=== PATIENT | female | born 1980 | race Caucasian/White ===

== ENCOUNTER → 2017-08-19 09:58 | Outpatient (CLI) | payer BC, SELFPAY ==
[2017-08-19 12:50] LABS: Hematocrit 41.8 % (37-47); Hemoglobin 13.9 g/dl (12.0-15.0); Mean Corp Hgb Conc 33.3 g/gl (32-36); Mean Corpuscular Volume 81.2 fL (81-99); Mean Platelet Vol. 10.1 fl (6.2-12.0); Platelet Count 246 K/mm3 (150-450); RBC Distribution Width CV 14.6 % (11.6-14.6); Red Blood Count 5.15 M/mm3 (4.2-5.4); White Blood Count 7.3 K/mm3 (4.4-11.0)
[2017-08-19 12:53] LABS: Scan Indicated on CBC? Y/N NO
[2017-08-19 13:09] LABS: T4 Free Direct 1.09 ng/dL (0.76-1.46); Thyroid Stim Hormone (TSH) 1.39 uIU/mL (0.358-3.74)
== END ==
PROVIDERS: Family Provider Family Medicine; PCP Family Medicine; Visit Provider Obstetrics & Gynecology
DX: N92.5 Other specified irregular menstruation (principal)
CPT/HCPCS: 36415; 84439; 84443; 85027

== ENCOUNTER → 2017-12-23 13:38 | Outpatient (CLI) | payer BC, SELFPAY ==
[2017-12-23 17:43] LABS: Hematocrit 40.4 % (37-47); Hemoglobin 13.1 g/dl (12.0-15.0); Mean Corp Hgb Conc 32.4 g/gl (32-36); Mean Corpuscular Volume 83.1 fL (81-99); Mean Platelet Vol. 9.9 fl (6.2-12.0); Platelet Count 237 K/mm3 (150-450); RBC Distribution Width CV 14.5 % (11.6-14.6); RBC Distribution Width SD 43.9 fl (35.1-43.9); Red Blood Count 4.86 M/mm3 (4.2-5.4)
[2017-12-23 18:00] LABS: Prothrombin Time (Protime)PT. 12.8 SECONDS (11.7-14.9)
[2017-12-23 18:01] LABS: Partial Thromboplast Time 29.9 Seconds (24.1-36.2)
[2017-12-23 18:16] LABS: Scan Indicated on CBC? Y/N NO
== END ==
PROVIDERS: Family Provider Family Medicine; PCP Family Medicine; Visit Provider Family Medicine Geriatric Medicine
DX: Z01.818 Encounter for other preprocedural examination (principal)
CPT/HCPCS: 36415; 85027; 85610; 85730; 86850; 86900

== ENCOUNTER 2017-12-25 05:37 | Day surgery (SDC) | payer BC, SELFPAY ==
[2017-12-25] VITALS (8 sets, daily range): BP systolic 123–149; BP diastolic 60–95; PULSE 112–125; RESP 16–18; TEMP 36.7–37.7; O2SAT 94–100; BMI 38.7
--- NOTE | 2017-12-25 07:22 | PCM.DC.D&C ---
Discharge Diet: No Restrictions Discharge Activity: May Shower, May Take a Tub Bath Return to work on:: 12/26/17 May resume sexual activity in: 1 week Allergies/Adverse Reactions: Allergies No Known Allergies Allergy (Verified 12/25/17 06:45) Medications to take at Discharge Cetirizine HCl [Zyrtec] 10 mg PO DAILY 12/19/13 Oxycodone [Oxyir] 5 - 10 mg PO Q6H PRN PRN 2 Days #10 tablet 12/25/17 The following prescriptions were given: Oxycodone [Oxyir] 5 - 10 mg PO Q6H PRN PRN 2 Days #10 tablet PRN Reason: Mod-Severe Pain (-02/25) Primary Care Physician: Omar Maldonado MD [Primary Care Provider] - Test Results: Test results from this visit will be discussed in further detail at your follow-up appointment, if applicable. Please Follow Up With: Christy Sharif MD - [phone] When: in 2 wk for postop checkup Proposed Discharge Date: 12/25/17
--- NOTE | 2017-12-25 07:25 | DCINST_ITS ---
Discharge Diet: No Restrictions Discharge Activity: May Shower, May Take a Tub Bath Return to work on:: 12/26/17 May resume sexual activity in: 1 week Allergies/Adverse Reactions: Allergies No Known Allergies Allergy (Verified 12/25/17 06:45) Medications to take at Discharge Cetirizine HCl [Zyrtec] 10 mg PO DAILY 12/19/13 Oxycodone [Oxyir] 5 - 10 mg PO Q6H PRN PRN 2 Days #10 tablet 12/25/17 The following prescriptions were given: Oxycodone [Oxyir] 5 - 10 mg PO Q6H PRN PRN 2 Days #10 tablet PRN Reason: Mod-Severe Pain (-02/25) Primary Care Physician: Omar Maldonado MD [Primary Care Provider] - Test Results: Test results from this visit will be discussed in further detail at your follow- up appointment, if applicable. Please Follow Up With: Christy Sharif MD - [phone] When: in 2 wk for postop checkup Proposed Discharge Date: 12/25/17
--- NOTE | 2017-12-25 07:30 | EMB_PTH ---
PATIENT: SHEEBA ALEGRIA LOC: [facility] [place] U#:[id number] AGE/SX: 37/F ROOM: RE12/25/[address]: Dr. Christy Sharif MD : [id number] BED: DIS: 12/25/2017 SPEC #: [id number] RECD: 12/25/17 09:19 STATUS: SHAWN LUCY #: [id number] EMILIO: 12/25/17 07:[address]: Christy Sharif DEPT: SURGICAL PATHOLOGY RECD BY: Casper Ballard ENTERED: 12/25/17 10:19 SP TYPE: ENDOM BX/C MAKI DR: Dr. Omar Maldonado MD Tissues: Endometrium, NOS Procedures: Surgery Specimen Level IV HEADER OPERATION: Hysteroscopy, D & C, Hilary PRE-OP DIAGNOSIS: Menorrhagia TISSUE SUBMITTED: Endometrial curettings MICROSCOPIC DIAGNOSIS Endometrial curettings: Secretory endometrium. SJ:meghan 12/26/17 MICROSCOPIC DESCRIPTION Slides are reviewed. GROSS DESCRIPTION Received in fixative is one container labeled with the patient's name and designated endometrial curettings. The specimen consists of multiple irregular fragments of soto-pink soft tissue mixed with mucoid tissue that in aggregate measure 5 x 3 x 0.3 cm. The entire specimen is submitted in two cassettes. / SJ:rg 12/25/17 TC:4 CPT: 56503
[2017-12-25] MEDS: Lubricating Jelly 60 GM Tube 30 GM TOPICAL (07:40)
[2017-12-25] MEDS: oxyCODONE 5 MG Tablet PO (08:48)
[2017-12-25] MEDS: Scopolamine 1mg/72hr Patch 1 PATCH TD (10:15)
[2017-12-25] MEDS: Ondansetron ODT 4 MG Tablet 8 MG PO (10:16)
--- NOTE | 2017-12-25 13:11 | PCM.OP.BLANK ---
Operative Report Date of Procedure: 12/25/17 PROCEDURE: Hysteroscopy, Dilation and curettage, Hilary endometrial ablation Preoperative Diagnosis: menorrhagia, premenopause Postop diagnosis: menorrhagia, premenopause Anesthesia: MAC IV sedation, Dr Marshal Cook with 10 cc paracervical block of 1% lidocaine with 1:100,000 epinephrine Surgeon: Christy Sharif MD EBL: Minimal for case Drains: Red Childress, clear yellow urine Complications: none Fluids: replacement Findings: nonparous appearing cervix Normal appearing , fluffy endometrium. Tubal ostia visualized bilaterally. Narrative account After the R,B,Alternatives of the procedure were reviewed with the patient , informed consent was obtained. The patient was taken to the operating room with an IV running and placed in dorsal supine position on the operating table. She was given general anesthesia, and repositioned to the dorsal lithotomy position and prepped and draped in the usual sterile fashion. A graves speculum was placed into the vagina and the cervix was brought into view. A paracervical block of 10 cc of lidocaine with 1:100,000 epinephrine was instilled. The cervix was nonparous appearing. A single toothed tenaculum was applied to the posterior lip of the cervix. The cervix was then sequentially dilated to allow admission of the hysteroscope into the endometrial cavity. The hysteroscopy was performed with findings noted as above. Photos were taken showing both tubal ostia and a fluffy appearing endometrium. A sharp curettage was performed and multiple small pieces of tissue were withdrawn and set aside for later pathology review. Upon completion of the D and C, the Hilary endometrial ablation device was placed into the uterus to the fundus, the endometrial canal length was 7 cm. The balloon seal at the cervix was inflated and the CO2 test was passed. The Hilary endometrial ablation cycle was then completed, and the device was withdrawn. Excellent hemostasis was noted. The single toothed tenaculum was removed from the cervix and a RayTec was used to remove any remaining tissue and blood from the upper vagina and cervix. The procedure was terminated. The speculum was removed. The patient was returned to dorsal supine position and awakened from general anesthesia, and transferred to the recovery room bed in stable condition after tolerating the procedure well. Sponge, lap, needle and instrument counts were correct x two. For medications given intraoperatively , please see the anesthesia record.
== END 2017-12-25 10:28 | disposition home or self-care (01) ==
LOC: SDC 05:39 → AC 05:39
PROVIDERS: Family Provider Family Medicine; PCP Family Medicine; Visit Provider Obstetrics & Gynecology
PROC: 0U5B8ZZ Destruction of Endometrium, Via Natural or Artificial Opening Endoscopic (ICD-10-PCS; CPT 58558; principal; 2017-12-25 07:15)
DX: N92.0 Excessive and frequent menstruation with regular cycle (principal); Z85.038 Personal history of other malignant neoplasm of large intestine
CPT/HCPCS: 58558; 88305; J7120

== ENCOUNTER → 2020-01-11 | Outpatient (CLI) | payer BC, SELFPAY ==
[2017-12-25 06:47] VITALS: BMI 38.7
[2020-01-13 20:07] LABS: Banana <0.10 kU/L (Class 0); Celery <0.10 kU/L (Class 0); Cheddar Cheese <0.10 kU/L (Class 0); Lettuce <0.10 kU/L (Class 0); Peach <0.10 kU/L (Class 0)
[2020-01-14 02:23] LABS: Lactalbumin, Alpha <0.10 kU/L (Class 0); Turkey <0.10 kU/L (Class 0)
[2020-01-14 03:07] LABS: Almond <0.10 kU/L (Class 0); Alternaria tenuis <0.10 kU/L (Class 0); Ash, White <0.10 kU/L (Class 0); Aspergillus fumigatus <0.10 kU/L (Class 0); Barley, Whole Grain <0.10 kU/L (Class 0); Beef <0.10 kU/L (Class 0); Bermuda Grass <0.10 kU/L (Class 0); Birch <0.10 kU/L (Class 0); Black Walnut <0.10 kU/L (Class 0); Carrot <0.10 kU/L (Class 0); Casein <0.10 kU/L (Class 0); Cashew <0.10 kU/L (Class 0); Cat Hair / Dander,Stand <0.10 kU/L (Class 0); Cedar, Mountain <0.10 kU/L (Class 0); Chicken <0.10 kU/L (Class 0); Chocolate <0.10 kU/L (Class 0); Cladosporium herbarum <0.10 kU/L (Class 0); Clam <0.10 kU/L (Class 0); Cockroach, American <0.10 kU/L (Class 0); Codfish <0.10 kU/L (Class 0); Corn <0.10 kU/L (Class 0); Cottonwood <0.10 kU/L (Class 0); Crab <0.10 kU/L (Class 0); D farinae Mite <0.10 kU/L (Class 0); D pteronyssinus <0.10 kU/L (Class 0); Dog Epithelia <0.10 kU/L (Class 0); Egg, White <0.10 kU/L (Class 0); Egg, Whole <0.10 kU/L (Class 0); Egg, Yolk <0.10 kU/L (Class 0); Elm, American White <0.10 kU/L (Class 0); Garlic <0.10 kU/L (Class 0); Gluten <0.10 kU/L (Class 0); Hazelnut/Filbert <0.10 kU/L (Class 0); Immunoglobulin E 51 IU/mL (6-495); Lobster <0.10 kU/L (Class 0); Maple/Box Elder <0.10 kU/L (Class 0); Milk (Cow) <0.10 kU/L (Class 0); Mulberry, White <0.10 kU/L (Class 0); Oak, White <0.10 kU/L (Class 0); Oat <0.10 kU/L (Class 0); Onion <0.10 kU/L (Class 0); Orange <0.10 kU/L (Class 0); Pea <0.10 kU/L (Class 0); Pecan <0.10 kU/L (Class 0); Penicillium Notatum <0.10 kU/L (Class 0); Pigweed, Rough <0.10 kU/L (Class 0); Pork <0.10 kU/L (Class 0); Potato, White <0.10 kU/L (Class 0); Ragweed, Short/Common 0.33 kU/L (Class I); Rice <0.10 kU/L (Class 0); Russian Thistle <0.10 kU/L (Class 0); Rye <0.10 kU/L (Class 0); Salmon <0.10 kU/L (Class 0); Sheep Sorrel <0.10 kU/L (Class 0); Shrimp <0.10 kU/L (Class 0); Soybean <0.10 kU/L (Class 0); Strawberry <0.10 kU/L (Class 0); Sycamore, American <0.10 kU/L (Class 0); Timothy Grass <0.10 kU/L (Class 0); Tomato <0.10 kU/L (Class 0); Tuna <0.10 kU/L (Class 0); Walnut, (Food) <0.10 kU/L (Class 0); Wheat <0.10 kU/L (Class 0); Yeast <0.10 kU/L (Class 0)
[2020-01-14 13:12] LABS: Apple <0.10 kU/L (Class 0); Mouse Urine <0.10 kU/L (Class 0); Peanut <0.10 kU/L (Class 0)
== END | disposition home or self-care (01) ==
LOC: POLAB3 12:17
PROVIDERS: Visit Provider Family Medicine Geriatric Medicine
DX: L20.89 Other atopic dermatitis (principal)
CPT/HCPCS: 36415; 82785; 86003